=== PATIENT | female | born 1990 | race Caucasian/White ===

== ENCOUNTER 2017-11-18 16:45 | Emergency (ER) | payer BC, OTHER ==
[~2017-11-18] VITALS: Ht 167.6 cm; Wt 72.6 kg
[2017-11-18 18:19] LABS: Basophils # (auto) 0.1 uL; Basophils % (auto) 0.6 % (0.0-2.0); Lymphocytes # (auto) 1.8 uL
[2017-11-18 18:20] LABS: Eosinophils # (auto) 0.2 uL; Eosinophils % (auto) 1.3 % (0.0-7.0); Hematocrit 42.3 % (36.0-46.0); Lymphocytes % (auto) 13.1 % (10.0-50.0); Mean Corpuscular Hemoglobin 26.7 pg (28.0-32.0); Mean Corpuscular Hgb Conc. 33.1 g/dL (32.0-36.0); Mean Corpuscular Volume 80.7 fL (80.0-100.0); Monocytes # (auto) 0.9 uL; Monocytes % (auto) 6.3 % (0.0-12.0); Neutrophils % (auto) 78.7 % (37.0-80.0); Nucleated Red Blood Cells % 0.1 %; Platelet Count (auto) 256 10^3/uL (140-450); Red Blood Cells 5.24 10^6/uL (4.0-5.20); Red Cell Distribution Width 14.5 % (11.8-14.3)
[2017-11-18 18:36] LABS: Albumin 4.3 g/dL (3.4-5.0); BUN/Creatinine Ratio 12.6; Bilirubin, Total 0.3 mg/dL (0.2-1.0); Calcium 9.1 mg/dL (8.5-10.1); Total Protein 8.6 g/dL (6.4-8.2)
[2017-11-18 22:07] LABS: Urine Bacteria NONE SEEN /hpf (None Seen); Urine Blood 3+ /uL (Negative); Urine Mucus FEW (None Seen); Urine Specific Gravity 1.016 (1.001-1.035); Urine WBC 1 /hpf (0 - 5)
[2017-11-18] MEDS ORDERED: SODIUM CHLORIDE 0.9% 1,000 ML IV ONE (22:30)
[2017-11-18] MEDS ORDERED: ONDANSETRON HCL 4 MG/2 ML VIAL IV ONE (22:30)
[2017-11-18] MEDS ORDERED: NALBUPHINE HCL 10 MG/1ml INJECTION IV ONE (22:30)
[2017-11-18 23:11] VITALS: BP 124/64
[2017-11-18] MEDS ORDERED: MORPHINE SULFATE 4 MG/ML SYR/VIAL IV ONE (23:30)
== END 2017-11-19 00:53 | disposition home or self-care (01) ==
LOC: ER 16:55
DX: N20.0 Calculus of kidney (principal)
CPT/HCPCS: 36415; 74176; 76705; 80053; 81001; 82150; 83690; 84702; 85025; 99285; J2270; J2300; J2405